=== PATIENT | female | born 1930 | race Two or more races ===

== ENCOUNTER 2020-06-04 08:19 | Outpatient (CLI) | payer OTHER | END 2020-06-04 08:22 | disposition home or self-care (01) | LOC: RX STUDY 08:19 | PROVIDERS: ATTEND Internal Medicine Gastroenterology | DX: R10.13 Epigastric pain (principal) ==

== ENCOUNTER 2020-06-09 08:59 | Outpatient (CLI) | payer OTHER | END 2020-06-09 09:08 | disposition home or self-care (01) | LOC: TOM 08:59 | PROVIDERS: ATTEND Internal Medicine Gastroenterology | DX: R10.13 Epigastric pain (principal) ==